=== PATIENT | female | born 1990 | race Caucasian/White ===

== ENCOUNTER 2021-09-29 16:42 | Outpatient (CLI) | payer OTHER ==
[2021-09-29] MEDS ORDERED: LACTATED RINGERS 1,000 ML IV SCH (17:45)
--- NOTE | 2021-09-29 18:59 | P.HPOB ---
History of Present Illness H&P Date: 09/29/21 Chief Complaint: Creased movement This is a 31-year-old 4 para 2012 woman who states a due date of 11/13/2021. She presents at 33-4/7 weeks gestation complaining of decreased movement for greater than 24 hours. Her is being managed by a nurse christmas tree grader and she is planning a home . She reports some mild contractions yesterday morning that have since resolved. She denies vaginal bleeding, leakage of fluids, abdominal pain, fever, chills, upper respiratory infection, rash, trauma, bowel or bladder changes. She denies any significant past medical history. Obstetric history is significant for a previous term low transverse s ection secondary to malpresentation. She had a successful vaginal after . She then had an 18 week D minus. She is currently again and has had an 18 week anatomy scan. She has been following with a nurse christmas tree grader and is planning a home delivery. Initial monitoring on labor and delivery showed a nonreactive NST. No movements were noted. The patient received 1 L of IV fluid rehydration and her biophysical profile was performed. Her BPP score was 8 out of 8. Her ANTONIO was 14 cm and the infant is in the vertex presentation. Following the BPP of the patient noted increase in the activity. There was improved variability and accelerations of the heart rate tracing. Review of Systems Constitutional: Denies fever Cardiovascular: Denies edema, Denies high blood pressure, Denies irregular heart beat, Denies shortness of breath Respiratory: Denies cough Gastrointestinal: Denies abdominal pain, Denies BRBPR, Denies change in bowel habits, Denies diarrhea, Denies heartburn, Denies nausea, Denies vomiting Genitourinary: Denies abnormal vaginal bleeding, Denies dysuria, Denies vaginal discharge Musculoskeletal: Denies low back pain Integumentary: Denies rash Neurological: Denies headaches Past Medical History History of Any Multi-Drug Resistant Organisms: None Reported Smoking Status: Never smoker Medications and Allergies Home Medications Medication Instructions Recorded Confirmed Type No Known Home Medications 09/29/21 09/29/21 History Allergies Allergy/AdvReac Type Severity Reaction Status Date / Time amoxicillin [From Augmentin] AdvReac Rash/Hives Verified 09/29/21 16:55 cefaclor [From Ceclor] AdvReac Rash/Hives Verified 09/29/21 16:55 clavulanic acid AdvReac Rash/Hives Verified 09/29/21 16:55 [From Augmentin] Exam Intake and Output 09/29/21 09/29/21 09/29/21 06:59 14:59 22:59 Other: Weight 70.307 kg In general this is a pleasant visibly gravid female in no apparent distress. HEENT exam is unremarkable. Her breathing is unlabored and her heart is a regular rate and rhythm. The abdomen is gravid, soft and nontender. She has a low transverse Pfannenstiel incision. She has no CVA tenderness. Extremities are free of any redness swelling rash or asymmetry. Deep tendon reflexes are 2+ with no clonus. Pelvic examination is deferred. Assessment and Plan (1) Decreased movement Current Visit: Yes Status: Acute Code(s): O36.8190 - DECREASED MOVEMENTS, UNSP TRIMESTER, UNSP SNOMED Code(s): 875983162 (2) 33 weeks gestation of Current Visit: Yes Status: Acute Code(s): Z3A.33 - 33 WEEKS GESTATION OF SNOMED Code(s): 01759717 (3) History of Current Visit: Yes Status: Acute Code(s): Z98.891 - HISTORY OF UTERINE SCAR FROM PREVIOUS SURGERY SNOMED Code(s): 624551954 Plan: 31-year-old 4 para 2 woman who presents with decreased movement. Biophysical profile 8 out of 8. She is now feeling some movement. She was recommended to follow up with her regular provider within the next 48 hours for further evaluation. All questions were answered. labor signs and symptoms were reviewed. Greater than 45 minutes spent in history taking, assessment, interpretation of testing and plan. Time with Patient: Greater than 30
[2021-09-29 19:38] VITALS: BP 113/64; PULSE 97; RESP 16; TEMP 98
--- NOTE | 2021-09-29 21:30 | US ---
EXAMINATION TYPE: US OB BPP wo non-stress DATE OF EXAM: 09/29/2021 COMPARISON: NONE CLINICAL HISTORY: Decreased movement. Mother noticed decreased movements today in 33w4d pregnan cy EXAM PERFORMED: Transabdominal (TA) BPP PARAMETERS: PRESENTATION: Vertex LIE: Longitudinal?? HEART RATE: 133 bpm RHYTHM: Normal ANTONIO: 14.6cm DIAPHRAGM IMAGED: yes BPP SCORIN. Breathin (1 episode of breathing of 30 second duration in 30 minutes of scanning time) 2. Movement: 2 (at least 3 discrete body movements in 30 minutes) 3. Tone: 2 (1 episode of active flexion/extension of limb) 4. ANTONIO: 2 (ANTONIO index > 5cm) TOTAL SCORE: 8 / 8 IMPRESSION: 1. Normal biophysical profile. 2. Score: 8/8.
== END 2021-09-29 19:00 | disposition home or self-care (01) ==
LOC: FBPOP 16:42
PROVIDERS: ATTEND Obstetrics & Gynecology
DX: O36.8130 Decreased fetal movements, third trimester, not applicable or unspecified (principal); Z3A.33 33 weeks gestation of pregnancy; Z98.891 History of uterine scar from previous surgery; Z88.1 Allergy status to other antibiotic agents
CPT/HCPCS: 59025; 76819; 96360; 96367; 99213; 99214